=== PATIENT | male | born 1945 | race Caucasian/White ===

== ENCOUNTER → 2017-11-21 | Day surgery (SDC) | payer MEDICARE, OTHER ==
[~2017-11-21] MED LIST: ASPIRIN81 MG; BETHANECHOL CHL25 MG; CRESTOR10 MG; DEXAMETHASONE SOD PHOS INJ 4 MG/ML VIAL ONE; DILTIAZEM HCL60 MG PO; FENTANYL CITRATE/PF 100MCG/2 ML INJ ONE; IOPAMIDOL 610MG/1ML 300 MG/ML VIAL IV ONE; LEVOFLOXACIN 250MG/D5W 50ML 0 ML ONE; LEVOFLOXACIN 500MG/D5W 100ML 100 ML IV ONE; LIDOCAINE HCL 2% LOCAL INJ 5 ML SDV VIAL INJ ONE; LISINOPRIL10 MG PO; MIDAZOLAM HCL 2 MG/2 ML VIAL ONE; ONDANSETRON HCL INJ 2 MG/ML VIAL ONE; PROAIR HFA INH8.5 GM; PROPOFOL IV EMULSION 10 MG/ML 20 ML VIAL ONE; SEVOFLURANE INHAL SOLN 250 ML PEN BTL ONE; TAMSULOSIN HCL0.4 MG; TOPROL XL50 MG PO
--- NOTE | 2017-11-21 12:23 | Diagnostic Imaging Report ---
EXAMINATION: CHEST 2 VIEWS INDICATION: \S\PREOP. Prostate cancer. COMPARISON: None FINDINGS: PA and lateral views TUBES and LINES: None. LUNGS: Lungs are well inflated. Lungs are clear. There is no evidence of pneumonia or pulmonary edema. PLEURA: No pleural effusion or pneumothorax. HEART AND MEDIASTINUM: The cardiomediastinal silhouette is unremarkable. BONES AND SOFT TISSUES: No acute osseous lesion. Soft tissues are unremarkable. UPPER ABDOMEN: No free air under the diaphragm. IMPRESSION: No acute thoracic abnormality. Signed by: Dr. David Marroquin M.D. on 11/21/2017 12:19 PM
[2017-11-21 15:45] VITALS: BP 137/75
--- NOTE | 2017-11-21 19:39 | Operative Report ---
DATE OF PROCEDURE: November 21, 2017 PREOPERATIVE DIAGNOSES 1. Adenocarcinoma of the prostate. 2. Bladder neck contracture. 3. Proximal bulbous urethral stricture. POSTOPERATIVE DIAGNOSES 1. Adenocarcinoma of the prostate. 2. Bladder neck contracture. 3. Proximal bulbous urethral stricture. OPERATION 1. Cystourethroscopy. 2. Balloon dilation of the urethral stricture and the bladder neck. 3. Insertion of Deluca catheter, #22 Samoan. SPAR FINISHER: Dr. Joss Moctezuma ANESTHETIC: General. INDICATIONS: Mr. Escobedo is a 72-year-old male who is very well known to me with a history of adenocarcinoma for many years now. He presented lately with increasing obstruction. An attempt at catheter placement was unsuccessful. For this reason, he was brought to be evaluated under anesthesia with cystoscopy and possible balloon dilation, etc. DESCRIPTION OF PROCEDURE: This patient was placed on the table in the lithotomy position and was prepped and draped in a sterile manner after satisfactory anesthesia. A #23-Samoan cystoscope was used, and cystourethroscopy was performed. The scope passed readily until the proximal bulbous urethra, which was strictured. A 0.35 Glidewire was then passed through the cystoscope through the strictured area all the way to the bladder under direct and fluoroscopic control. A 10-cm urethral balloon was then passed over the guidewire through the scope through the strictured area and the bladder neck, and the balloon was inflated up to 5 atmospheres for 5 minutes. The balloon was deflated and removed, keeping the guidewire in. The cystoscope was passed through the dilated area with some difficulty but without any injury to the urethra or the bladder neck. Cystoscopy was then performed. The bladder mucosa was normal. The bladder wall, however, was moderately trabeculated. The cystoscope was removed. A 22-Samoan Councill-tipped Deluca catheter was placed. Cystogram was normal, with no evidence of injury or leaking or extravasation. The Deluca catheter was left in place. The bladder was drained. The patient tolerated the procedure well and was taken to the recovery room in satisfactory condition. Plan for this patient is to return to the office in 1 week. We will keep the Deluca catheter in there for a week. Discharge medication was Cipro 500 mg 1 twice a day for 1 week. Job#: [id number]
== END | disposition home or self-care (01) ==
LOC: OR 10:58
PROVIDERS: ATTEND Specialist
DX: N35.9 Urethral stricture, unspecified (principal); C61 Malignant neoplasm of prostate; N32.0 Bladder-neck obstruction; N32.89 Other specified disorders of bladder; I25.2 Old myocardial infarction; I25.10 Atherosclerotic heart disease of native coronary artery without angina pectoris; E78.00 Pure hypercholesterolemia, unspecified; R03.0 Elevated blood-pressure reading, without diagnosis of hypertension; Z88.6 Allergy status to analgesic agent; Z88.0 Allergy status to penicillin; Z79.82 Long term (current) use of aspirin; Z95.5 Presence of coronary angioplasty implant and graft
CPT/HCPCS: 52281; 71046; 74450; C1758; J1100; J1956; J2001; J2250; J2405; Q9967